=== PATIENT | female | born 1985 | race Caucasian/White ===

== ENCOUNTER 2017-11-30 21:51 | Emergency (ER) | payer OTHER ==
[~2017-11-30] VITALS: Ht 170.2 cm; Wt 79.9 kg
[~2017-11-30 21:51] MED LIST: BACTRIM,SEPT1 TABLET PO; FIORICET 50-321 EAC1 PO; FLINTSTONES1 TABLET PO; MOTRIN800 MG PO; Motrin PO; NAPROSYN500 MG PO; NOHOMEMEDS; PHENERGAN12.5 M1 PO; PHENERGAN25 MG PR; Percocet 5/325,Endoc PO; REGLAN10 MG PO; RELPAX40 MG PO; SUMAVEL DO4 MG/0.5 M PO; TYLENOL EXTRA500 M1 PO; ZOFRAN4 MG PO
[2017-11-30 22:49] LABS: BASOPHIL (%) 1.3 % (0-1); BASOPHIL COUNT 0.1 K/uL (0-0.1); EOSINOPHIL (%) 2.4 % (0-5); EOSINOPHIL COUNT 0.2 K/uL (0-0.3); HEMATOCRIT 39.2 % (36.0-46.0); IMMATURE GRANULOCYTE (%) 0.2 % (0.0-0.7); LYMPHOCYTE (%) 23.5 % (15-42); LYMPHOCYTE COUNT 1.5 K/uL (1.0-2.8); MCH 26.1 PG (29.0-34.0); MCHC 33.2 G/DL (30.0-36.0); MCV 78.6 FL (83-99); MONOCYTE (%) 4.4 % (3-12); MONOCYTE COUNT 0.3 K/uL (0-0.8); NEUTROPHIL (%) 68.2 % (45-76); NEUTROPHIL COUNT 4.4 K/uL (1.8-6.4); PLATELET COUNT 355 K/uL (156-360); RBC DIS.WIDTH-CV 14.5 % (11.8-14.6); RED BLOOD COUNT 4.99 M/uL (3.80-5.20); WHITE BLOOD COUNT 6.4 K/uL (4.1-10.2)
[2017-11-30 23:02] LABS: CHLORIDE 102 mEq/L (99-109); POTASSIUM 3.9 mEq/L (3.7-5.4); SODIUM 138 mEq/L (136-147)
[2017-11-30 23:04] LABS: GLUCOSE 93 mg/dL (70-99)
[2017-11-30 23:07] LABS: GFR ESTIMATE (CALCULATED) > 59 mL/min/
[2017-11-30 23:08] LABS: UREA NITROGEN (BUN) 11 mg/dL (9-23)
[2017-11-30 23:09] LABS: TROP-I INTERPRETATION NEGATIVE; TROPONIN-I < 0.01 ng/mL (0.0-0.30)
[2017-11-30 23:22] LABS: QUANTITATIVE HCG < 4.0 MIU/ML
[2017-12-01 00:37] VITALS: BP 129/83
== END 2017-12-01 00:38 | disposition home or self-care (01) ==
LOC: EME → RME 21:51 → EDBD 21:51 → EME 21:51 → RME 12-01 00:38
PROVIDERS: Physician Assistant
DX: R07.9 Chest pain, unspecified (principal); R51 Headache; R20.2 Paresthesia of skin; R06.02 Shortness of breath; R11.2 Nausea with vomiting, unspecified; Z87.442 Personal history of urinary calculi
CPT/HCPCS: 71045; 80048; 84484; 84702; 85025; 93005; 99281; 99285; J1885; J2405; J7030